=== PATIENT | female | born 1985 | race Caucasian/White ===

== ENCOUNTER 2016-11-09 20:25 | Emergency (ER) | payer OTHER ==
[~2016-11-09] VITALS: Ht 160 cm; Wt 67.1 kg
[2016-11-09] MEDS ORDERED: CLARITIN10 MG PO (21:05)
[2016-11-09] MEDS ORDERED: PRENATAL PLUS I1 TAB PO (21:05)
== END 2016-11-09 21:30 | disposition short-term general hospital (02) ==
LOC: ER 20:25
DX: O99.89 Other specified diseases and conditions complicating pregnancy, childbirth and the puerperium (principal); R49.0 Dysphonia; Z79.899 Other long term (current) drug therapy; Z88.0 Allergy status to penicillin; Z3A.30 30 weeks gestation of pregnancy

== ENCOUNTER 2017-01-08 19:20 | Inpatient (IN) | payer OTHER ==
[~2017-01-08] VITALS: Ht 160 cm; Wt 76.4 kg
[~2017-01-08 19:20] MED LIST: CLARITIN10 MG PO; PRENATAL PLUS I1 TAB PO
[2017-01-09] MEDS ORDERED: ADDERALL 30 MG30 MG PO (01:49)
[2017-01-09] MEDS ORDERED: VITAMIN D35000 UNIT PO (01:50)
[2017-01-09] MEDS ORDERED: MOTRIN800 MG PO (08:34)
[2017-01-09] MEDS ORDERED: DERMOPLAST PAIN78 GM TOP (08:35)
[2017-01-09] MEDS ORDERED: COLACE100 MG PO (08:36)
[2017-01-09] MEDS ORDERED: LAN-O-SOOTHE7 GM TOP (08:37)
== END 2017-01-10 10:00 | disposition short-term general hospital (02) | DRG 775 ==
LOC: LDROP 19:20 → LDRIP 21:15
PROVIDERS: ADMIT Family Medicine
PROC: 10E0XZZ Delivery of Products of Conception, External Approach (ICD-10-PCS; principal; 2017-01-08)
PROC: 10907ZC Drainage of Amniotic Fluid, Therapeutic from Products of Conception, Via Natural or Artificial Opening (ICD-10-PCS; principal; 2017-01-08)
DX: O80 Encounter for full-term uncomplicated delivery (principal); J01.90 Acute sinusitis, unspecified; Z3A.39 39 weeks gestation of pregnancy; Z37.0 Single live birth; B99.9 Unspecified infectious disease
CPT/HCPCS: A9150; J2310; J2370; J2590; J2795; J3010